=== PATIENT | female | born 1960 | race Caucasian/White ===

== ENCOUNTER 2016-12-17 18:46 | Emergency (ER) | payer SELFPAY ==
[~2016-12-17] VITALS: Ht 154.9 cm; Wt 65.8 kg
[2016-12-17 20:46] VITALS: BP 112/71
== END 2016-12-17 20:46 | disposition home or self-care (01) ==
LOC: ED 18:46
DX: S63.502A Unspecified sprain of left wrist, initial encounter (principal); M79.1 Myalgia; W01.0XXA Fall on same level from slipping, tripping and stumbling without subsequent striking against object, initial encounter; Y93.89 Activity, other specified; Y99.8 Other external cause status; Y92.89 Other specified places as the place of occurrence of the external cause
CPT/HCPCS: J1885